=== PATIENT | male | born 1945 | race Caucasian/White ===

== ENCOUNTER → 2018-05-06 | Outpatient (CLI) | payer OTHER ==
[~2018-05-06] VITALS: Ht 180.3 cm; Wt 93.0 kg
[~2018-05-06] MED LIST: ALLEGRA ALLERG180 MG PO; AMLODIPINE BESY10 MG PO; ASPIR 8181 MG PO; ATACAND HCT 321 EAC1 PO; ATENOLOL 25 MG25 M1 PO; ATORVASTATIN CA40 MG PO; COLCHICINE 0.60.6 M1 PO; COZAAR 50 MG TA50 M2 PO; ELIQUIS5 MG PO; ENOXAPARIN100 MG/11; FLECAINIDE ACET50 M1 PO; FLOMAX0.4 MG PO; INDOCIN50 MG PO; LIPITOR20 MG PO; MITIGARE0.6 MG PO; NITROGLYCERIN0.4 MG SUBLING; NORVASC5 MG PO; PACERONE 200 M200 M1 PO; PLAVIX 75 MG TA75 M1 PO; PRADAXA150 MG PO; PRILOSEC 20 MG20 MG PO; PROTONIX40 M2 PO; TOPROL XL100 MG PO; VYTORIN 10-201 EACH PO; [UNRECOGNIZED DRUG - OTHER] PO
--- NOTE | ~2018-05-06 | P ---
[facility] [place] [address] PROCEDURE REPORT Name: OWENSSHARON Room #: REG [facility]#: [id number] Admission: 05/06/18 Attend Phys: Ted Carlson MD Discharge: Date of : 47 Report #: [id number] THIS REPORT FOR: //name// CC: Ted Rodríguez DATE OF SERVICE: 05/06/2018 LOCATION: [facility] Operating Room 9. PROCEDURE: Colonoscopy. INDICATIONS: The patient with a history of hyperplastic polyps presents for routine followup. Last colonoscopy was in 2011 with findings of hyperplastic polyps. MEDICATIONS: Monitored anesthesia care. Please see the anesthesiologist's report per the patient's ASA classification. DESCRIPTION OF PROCEDURE: After careful discussion of the risks and benefits of the procedure including risk of perforation, the patient agreed to proceed. The adult colonoscope was then introduced through the anus all the way to the cecum. Cecum was identified by the appendiceal orifice and the ileocecal valve and then withdrawn carefully with careful inspection over a 6-minute withdrawal time. FINDINGS: Cecal polyp 4 x 5 mm sessile. This was removed with jumbo biopsy forceps and a 2-mm sessile polyp in the sigmoid colon that was removed with jumbo biopsy forceps. There was diverticulosis in the ascending colon, descending colon and sigmoid colon. They were medium sized and extensive. There were small internal hemorrhoids that were nonbleeding and uncomplicated. RECOMMENDATIONS: To await biopsy results and to repeat a colonoscopy in 5 years. Recommend high-fiber diet. He may resume his Eliquis, Plavix, and aspirin tonight and we will contact him with the biopsy results. No complications were observed. <ELECTRONICALLY SIGNED> By: Ted Carlson MD 05/06/18 1349 [id number] [id number] Ted Carlson MD /nt
--- NOTE | ~2018-05-06 | PATH ---
[facility] [address] [place] [address] PATHOLOGY RPT PROCEDURE Name: KARLO DENSON Room #: REG GILLIAN Ledbetter.#: [id number] Admission: 05/06/18 Date of : 47 Discharge: Report #: [id number] Path Case #: [id number] Accession Number: [id number] . 01 Material submitted: . PART A: POLYP @ CECUM PART B: POLYP AT SIGMOID COLON . 01 Clinical history: . Pre-Op DX: Hx polyp Post-OP DX: Colon polyps, diverticulosis . 02 Diagnosis: A. Polyp, at cecum, endoscopic biopsy: - Tubular adenoma. - Negative for high-grade dysplasia. . B. Polyp, at sigmoid colon, endoscopic biopsy: - Hyperplastic polyp. - Negative for dysplasia. (IUV:pit 05/07/2018) QTP/05/07/2018 . 02 Electronically signed: . Kristy Mccartney MD, Pathologist NPI- [id number] . 01 Gross description: . A. Received in formalin labeled "Karlo Denson, polyp at cecum," is a single segment of thrasher soft tissue measuring 0.4 cm in maximum dimension. The specimen is entirely submitted in cassette A1. . B. Received in formalin labeled "Karlo Denson, polyp at sigmoid colon," is a single segment of thrasher soft tissue measuring 0.4 cm in maximum dimension. The specimen is entirely submitted in cassette B1. (TSD; 05/06/2018) TOB/TOB . 02 Pathologist provided ICD-10: D12.0, K63.5 . 02 CPT . 810992, 312939 Performed at: [address] [id number] MD Krishan Kellogg MD Phone: [phone] [facility] [address] [place] [address] PATHOLOGY RPT PROCEDURE Name: KARLO DENSON Room #: REG GILLIAN Sal#: [id number] Admission: 05/06/18 Date of : 47 Discharge: Report #: [id number] Path Case #: [id number] Performed at: [address] [id number] MD Kristy Mccartney MD Phone: [phone]
== END | disposition home or self-care (01) ==
LOC: GI 08:47
DX: Z12.11 Encounter for screening for malignant neoplasm of colon (principal); Z86.010 Personal history of colon polyps; D12.0 Benign neoplasm of cecum; K63.5 Polyp of colon; K57.30 Diverticulosis of large intestine without perforation or abscess without bleeding; K64.8 Other hemorrhoids; K21.9 Gastro-esophageal reflux disease without esophagitis; I10 Essential (primary) hypertension; I48.91 Unspecified atrial fibrillation; E78.5 Hyperlipidemia, unspecified; J44.9 Chronic obstructive pulmonary disease, unspecified; Z95.5 Presence of coronary angioplasty implant and graft; Z98.890 Other specified postprocedural states; Z87.891 Personal history of nicotine dependence; Z79.899 Other long term (current) drug therapy; Z88.8 Allergy status to other drugs, medicaments and biological substances; Z79.82 Long term (current) use of aspirin
CPT/HCPCS: 62110; 62900